=== PATIENT | male | born 1935 | race Caucasian/White ===

== ENCOUNTER 2016-06-04 09:01 | Outpatient (CLI) | payer MEDICARE, OTHER | END 2016-06-04 09:02 | disposition home or self-care (01) | DX: I48.91 Unspecified atrial fibrillation (principal); Z76.89 Persons encountering health services in other specified circumstances ==

== ENCOUNTER 2016-07-02 08:35 | Outpatient (CLI) | payer MEDICARE, OTHER | END 2016-07-02 08:36 | LOC: LAB.F 08:35 | PROVIDERS: ATTEND Family Medicine | DX: I48.91 Unspecified atrial fibrillation (principal); Z76.89 Persons encountering health services in other specified circumstances | CPT/HCPCS: 85610 ==

== ENCOUNTER 2016-08-06 08:58 | Outpatient (CLI) | payer MEDICARE, OTHER | END 2016-08-06 08:59 | disposition home or self-care (01) | DX: I48.91 Unspecified atrial fibrillation (principal); Z76.89 Persons encountering health services in other specified circumstances ==

== ENCOUNTER 2016-09-10 08:23 | Outpatient (CLI) | payer MEDICARE, OTHER | END 2016-09-10 08:24 | disposition home or self-care (01) | DX: I48.91 Unspecified atrial fibrillation (principal); Z76.89 Persons encountering health services in other specified circumstances ==

== ENCOUNTER 2016-10-02 08:00 | Outpatient (CLI) | payer MEDICARE, OTHER ==
[2016-10-02 13:07] LABS: BASOPHILS % (AUTO) 0.6 %; EOSINOPHILS # (AUTO) 0.3 10^3/uL (0.0-0.7); EOSINOPHILS % (AUTO) 6.1 %; HCT - HEMATOCRIT 35.9 % (42.0-52.0); HGB - HEMOGLOBIN 12.1 g/dL (14.0-18.0); LYMPHOCYTES # (AUTO) 1.5 10^3/uL (1.5-3.5); LYMPHOCYTES % (AUTO) 32.2 %; MEAN CORPUSCULAR HEMOGLOBIN 31.3 pg (27.0-31.0); MEAN CORPUSCULAR HGB CONC 33.8 g/dL (32.0-36.0); MEAN CORPUSCULAR VOLUME 92.4 fL (80.0-94.0); MEAN PLATELET VOLUME 10.1 fL (7.4-11.4); MONOCYTES # (AUTO) 0.5 10^3/uL (0.0-1.0); MONOCYTES % (AUTO) 10.2 %; NEUTROPHILS # (AUTO) 2.4 10^3/uL (1.5-6.6); NEUTROPHILS % (AUTO) 50.9 %; RED BLOOD COUNT 3.88 10^6/uL (4.70-6.10); RED CELL DISTRIBUTION WIDTH 15.3 % (12.0-15.0); UNCORRECTED WHITE BLOOD COUNT 4.6 x10^3/uL; WHITE BLOOD COUNT 4.6 x10^3/uL (4.8-10.8)
[2016-10-02 13:40] LABS: PSA FREE 1.29 ng/mL (0.16-2.81)
[2016-10-02 13:41] LABS: PSA TOTAL 4.26 ng/mL (0.000-2.000)
[2016-10-02 13:44] LABS: ALBUMIN/GLOBULIN RATIO 1.6 (1.0-2.2); BILIRUBIN,TOTAL 0.7 mg/dL (0.2-1.0); BUN - BLOOD UREA NITROGEN 26 mg/dL (6-20); CALCIUM 9.1 mg/dL (8.5-10.3); CARBON DIOXIDE - CO2 28 mmol/L (21-32); CHLORIDE 105 mmol/L (101-111); CHOL/HDL RATIO 4.6 (<5.0); CHOLESTEROL 153 mg/dL; CREATININE 1.1 mg/dL (0.6-1.2); GFR - MDRD 64 (>89); GLUCOSE 99 mg/dL (70-100); HDL CHOLESTEROL 33 mg/dL; POTASSIUM 4.3 mmol/L (3.5-5.0); SODIUM 139 mmol/L (135-145); TOTAL PROTEIN 6.5 g/dL (6.7-8.2); TRIGLYCERIDES 105 mg/dL; VLDL CHOLESTEROL 21 mg/dL
== END 2016-10-02 08:01 | disposition home or self-care (01) ==
LOC: LAB.WCP 08:00
PROVIDERS: ATTEND Family Medicine
DX: I48.91 Unspecified atrial fibrillation (principal); E03.9 Hypothyroidism, unspecified; D64.9 Anemia, unspecified; I10 Essential (primary) hypertension; E78.1 Pure hyperglyceridemia; R97.20 Elevated prostate specific antigen [PSA]
CPT/HCPCS: 36415; 80053; 80061; 84154; 84443; 85025

== ENCOUNTER 2016-11-14 07:45 | Outpatient (CLI) | payer MEDICARE, OTHER | END 2016-11-14 07:46 | disposition home or self-care (01) | LOC: LAB.F 07:45 | PROVIDERS: ATTEND Family Medicine | DX: I48.91 Unspecified atrial fibrillation (principal) | CPT/HCPCS: 85610 ==

== ENCOUNTER 2016-11-28 08:12 | Outpatient (CLI) | payer MEDICARE, OTHER | END 2016-11-28 08:13 | disposition home or self-care (01) | LOC: LAB.F 08:12 | PROVIDERS: ATTEND Family Medicine | DX: I48.91 Unspecified atrial fibrillation (principal) | CPT/HCPCS: 85610 ==

== ENCOUNTER 2017-01-22 11:52 | Outpatient (CLI) | payer MEDICARE, OTHER | END 2017-01-22 11:53 | disposition EMS.NT | LOC: EMS 11:52 | PROVIDERS: ATTEND Surgery | DX: R55 Syncope and collapse (principal) ==

== ENCOUNTER 2017-03-06 08:04 | Outpatient (CLI) | payer MEDICARE, OTHER | END 2017-03-06 08:05 | disposition home or self-care (01) | LOC: LAB.F 08:04 | PROVIDERS: ATTEND Family Medicine | DX: I48.91 Unspecified atrial fibrillation (principal); Z76.89 Persons encountering health services in other specified circumstances | CPT/HCPCS: 85610 ==

== ENCOUNTER 2017-04-03 08:05 | Outpatient (CLI) | payer MEDICARE, OTHER | END 2017-04-03 08:06 | disposition home or self-care (01) | LOC: LAB.F 08:05 | PROVIDERS: ATTEND Family Medicine | DX: I48.91 Unspecified atrial fibrillation (principal); Z76.89 Persons encountering health services in other specified circumstances | CPT/HCPCS: 85610 ==

== ENCOUNTER 2017-04-22 08:00 | Outpatient (CLI) | payer MEDICARE, OTHER ==
[2017-04-22 12:31] LABS: BASOPHILS % (AUTO) 0.8 %; EOSINOPHILS # (AUTO) 0.2 10^3/uL (0.0-0.7); EOSINOPHILS % (AUTO) 3.8 %; HCT - HEMATOCRIT 37.5 % (42.0-52.0); HGB - HEMOGLOBIN 12.7 g/dL (14.0-18.0); LYMPHOCYTES # (AUTO) 1.3 10^3/uL (1.5-3.5); LYMPHOCYTES % (AUTO) 28.8 %; MEAN CORPUSCULAR HEMOGLOBIN 31.7 pg (27.0-31.0); MEAN CORPUSCULAR HGB CONC 33.7 g/dL (32.0-36.0); MEAN CORPUSCULAR VOLUME 93.9 fL (80.0-94.0); MONOCYTES # (AUTO) 0.4 10^3/uL (0.0-1.0); MONOCYTES % (AUTO) 8.8 %; NEUTROPHILS # (AUTO) 2.7 10^3/uL (1.5-6.6); NEUTROPHILS % (AUTO) 57.8 %; UNCORRECTED WHITE BLOOD COUNT 4.6 x10^3/uL; WHITE BLOOD COUNT 4.6 x10^3/uL (4.8-10.8)
[2017-04-22 12:49] LABS: HEMOGLOBIN A1C 0.44 g/dL
[2017-04-22 12:52] LABS: ALBUMIN/GLOBULIN RATIO 1.6 (1.0-2.2); BILIRUBIN,TOTAL 0.9 mg/dL (0.2-1.0); BUN - BLOOD UREA NITROGEN 17 mg/dL (6-20); CALCIUM 8.8 mg/dL (8.5-10.3); CARBON DIOXIDE - CO2 28 mmol/L (21-32); CHLORIDE 103 mmol/L (101-111); CHOL/HDL RATIO 4.2 (<5.0); CHOLESTEROL 164 mg/dL; CREATININE 1.1 mg/dL (0.6-1.2); GFR - MDRD 64 (>89); GLUCOSE 96 mg/dL (70-100); HDL CHOLESTEROL 39 mg/dL; LDL/HDL RATIO 2.5 (<3.6); POTASSIUM 3.7 mmol/L (3.5-5.0); SODIUM 135 mmol/L (135-145); TOTAL PROTEIN 6.6 g/dL (6.7-8.2); TRIGLYCERIDES 131 mg/dL; VLDL CHOLESTEROL 26 mg/dL
== END 2017-04-22 08:01 | disposition home or self-care (01) ==
LOC: LAB.WCP 08:00
PROVIDERS: ATTEND Family Medicine
DX: I48.91 Unspecified atrial fibrillation (principal); E11.9 Type 2 diabetes mellitus without complications; I10 Essential (primary) hypertension; E78.1 Pure hyperglyceridemia; E03.9 Hypothyroidism, unspecified
CPT/HCPCS: 36415; 80053; 80061; 83036; 85025

== ENCOUNTER 2017-05-25 09:49 | Emergency (ER) | payer MEDICARE, OTHER ==
[2017-05-25] MEDS ORDERED: MECLIZINE 12.5 MG TABLET PO STA (12:20)
--- NOTE | 2017-05-25 12:21 | ED Physician Documentation ---
History of Present Illness - Stated complaint Stated Complaint: HIGH BP/LIGHTHEAD - Chief complaint Chief Complaint: General - History obtained from History obtained from: Patient, Family - History of Present Illness Timing: How many weeks ago (2) - Additonal information Additional information: 81-year-old male has been experiencing acute episodic dizziness for the past 2 weeks. His primary care doctor is asked him coming to the emergency department to be evaluated for dehydration. He reports that he is having episodic dizziness that is profound and associated with movement of his head. This is worse today than normal. Review of Systems Constitutional: denies: Fever, Chills, Myalgias Eyes: denies: Decreased vision Ears: denies: Ear pain Nose: denies: Rhinorrhea / runny nose, Congestion Throat: denies: Sore throat Cardiac: denies: Chest pain / pressure, Palpitations Respiratory: denies: Dyspnea, Cough GI: reports: Nausea. denies: Abdominal Pain, Constipation, Diarrhea : denies: Dysuria, Frequency Skin: denies: Rash Musculoskeletal: denies: Neck pain, Back pain, Extremity pain Neurologic: denies: Generalized weakness, Focal weakness, Numbness PD PAST MEDICAL HISTORY - Present Medications Home Medications: Ambulatory Orders Medication Instructions Recorded Confirmed Allopurinol 400 mg PO DAILY 05/25/17 05/25/17 Aspirin 81 mg PO DAILY 05/25/17 05/25/17 Carvedilol 25 mg PO BID 05/25/17 05/25/17 Cilostazol 50 mg PO BID 05/25/17 05/25/17 Flaxseed Oil 1,000 mg PO DAILY 05/25/17 05/25/17 Furosemide 20 mg PO DAILY 05/25/17 05/25/17 Lovastatin 10 mg PO DAILY 05/25/17 05/25/17 Meclizine HCl [Bonine] 25 mg PO Q6HR PRN #20 tab.chew 05/25/17 Ondansetron Odt [Zofran] 4 mg TL Q6H PRN #10 tablet 05/25/17 Terazosin [Hytrin] 5 mg PO DAILY 05/25/17 05/25/17 Warfarin [Coumadin] 5 mg PO 1400 05/25/17 05/25/17 Warfarin [Coumadin] 7.5 mg PO 1400 05/25/17 05/25/17 - Allergies Allergies/Adverse Reactions: Allergies Allergy/AdvReac Type Severity Reaction Status Date / Time niacin Allergy Unknown Verified 05/25/17 09:55 Penicillins Allergy Unknown Verified 05/25/17 09:55 PD ED PE NORMAL - Vitals Vital signs reviewed: Yes (Normal) - General General: Alert and oriented X 3, No acute distress, Well developed/nourished - HEENT HEENT: Atraumatic, PERRL, EOMI, Ears normal, Moist mucous membranes, Pharynx benign - Neck Neck: Supple, no meningeal sign, No bony TTP - Cardiac Cardiac: RRR, No murmur - Respiratory Respiratory: No respiratory distress, Clear bilaterally - Abdomen Abdomen: Soft, Non tender - Back Back: No CVA TTP, No spinal TTP - Derm Derm: Normal color, Warm and dry, No rash - Extremities Extremities: No deformity, No edema - Neuro Neuro: Alert and oriented X 3, No motor deficit, No sensory deficit, Normal speech Eye Opening: Spontaneous Motor: Obeys Commands Verbal: Oriented GCS Score: 15 - Psych Psych: Normal mood, Normal affect Results - Vitals Vitals: Vital Signs - 24 hr 05/25/17 05/25/17 05/25/17 09:52 10:47 11:12 Temperature 36 C L 36.4 C L Heart Rate 71 72 Heart Rate [ 70 Sitting] Heart Rate [ 68 Standing] Heart Rate [ 69 Supine] Respiratory 22 16 Rate Blood Pressure 128/71 113/68 Blood Pressure 121/72 [Sitting] Blood Pressure 122/69 [Standing] Blood Pressure 121/67 [Supine] O2 Saturation 100 97 05/25/17 14:16 Temperature Heart Rate 67 Heart Rate [ Sitting] Heart Rate [ Standing] Heart Rate [ Supine] Respiratory 12 Rate Blood Pressure 158/84 H Blood Pressure [Sitting] Blood Pressure [Standing] Blood Pressure [Supine] O2 Saturation 97 Oxygen O2 Source Room air - EKG (time done) 1024 Rate: Rate (enter#) (67) Rhythm: NSR Intervals: RBBB Compare to prior EKG: Old EKG unavailable Computer interpretation: Agree with computer - Labs Labs: Laboratory Tests 05/25/17 05/25/17 05/25/17 13:09 13:09 13:09 WBC 3.8 L RBC 3.73 L Hgb 11.9 L Hct 35.1 L MCV 94.0 MCH 32.0 H MCHC 34.0 RDW 15.9 H Plt Count 126 L MPV 9.4 Neut # 2.2 Lymph # 1.0 L [place] # 0.4 Eos # 0.1 Baso # 0.0 Absolute Nucleated RBC 0.00 Nucleated RBC % 0.0 PT INR Sodium 138 Potassium 3.8 Chloride 103 Carbon Dioxide 27 Anion Gap 8.0 BUN 25 H Creatinine 0.9 Estimated GFR (MDRD) 81 L Glucose 96 Calcium 8.8 Total Bilirubin 0.7 AST 15 ALT 13 Alkaline Phosphatase 48 Troponin I < 0.04 Total Protein 6.6 L Albumin 4.1 Globulin 2.5 Albumin/Globulin Ratio 1.6 Lipase 22 05/25/17 13:09 WBC RBC Hgb Hct MCV MCH MCHC RDW Plt Count MPV Neut # Lymph # [place] # Eos # Baso # Absolute Nucleated RBC Nucleated RBC % PT 25.5 H INR 2.3 H Sodium Potassium Chloride Carbon Dioxide Anion Gap BUN Creatinine Estimated GFR (MDRD) Glucose Calcium Total Bilirubin AST ALT Alkaline Phosphatase Troponin I Total Protein Albumin Globulin Albumin/Globulin Ratio Lipase Procedures - IVC sono (time) 1220 Bedside IVC sono: IVC measures (cm) (1.71), IVC collapsed c insp (cm) (0.95), Euvolemia PD MEDICAL DECISION MAKING - ED course Complexity details: reviewed old records, reviewed results, re-evaluated patient , considered differential, d/w patient, d/w family ED course: 81-year-old male with acute vertigo has improved with use of meclizine and he does not appear to be dehydrated on interrogation of the inferior vena cava.There are 2 other patients in the department today and now with acute labyrinthitis. He is given a prescription for some meclizine and instructions on modified Ronald maneuvers. Departure - Departure Disposition: 01 Home, Self Care Clinical Impression: Labyrinthitis, acute Qualifiers: Laterality: bilateral Qualified Code(s): H83.03 - Labyrinthitis, bilateral Condition: Stable Instructions: ED Labyrinthitis Follow-Up: Larry Dumont MD [Primary Care Provider] - Prescriptions: Meclizine HCl [Bonine] 25 mg PO Q6HR PRN #20 tab.chew PRN Reason: Dizziness Ondansetron Odt [Zofran] 4 mg TL Q6H PRN #10 tablet PRN Reason: Nausea / Vomiting
[2017-05-25 13:19] LABS: BASOPHILS % (AUTO) 0.8 %; EOSINOPHILS # (AUTO) 0.1 10^3/uL (0.0-0.7); EOSINOPHILS % (AUTO) 3.5 %; HGB - HEMOGLOBIN 11.9 g/dL (14.0-18.0); LYMPHOCYTES % (AUTO) 25.8 %; MEAN PLATELET VOLUME 9.4 fL (7.4-11.4); MONOCYTES # (AUTO) 0.4 10^3/uL (0.0-1.0); MONOCYTES % (AUTO) 10.7 %; NEUTROPHILS # (AUTO) 2.2 10^3/uL (1.5-6.6); NEUTROPHILS % (AUTO) 59.2 %; PLT - PLATELET COUNT 126 10^3/uL (130-450); RED BLOOD COUNT 3.73 10^6/uL (4.70-6.10); RED CELL DISTRIBUTION WIDTH 15.9 % (12.0-15.0); WHITE BLOOD COUNT 3.8 x10^3/uL (4.8-10.8)
[2017-05-25 13:30] LABS: ALBUMIN 4.1 g/dL (3.2-5.5); ALBUMIN/GLOBULIN RATIO 1.6 (1.0-2.2); BILIRUBIN,TOTAL 0.7 mg/dL (0.2-1.0); CALCIUM 8.8 mg/dL (8.5-10.3); CREATININE 0.9 mg/dL (0.6-1.2); TOTAL PROTEIN 6.6 g/dL (6.7-8.2)
[2017-05-25 14:17] VITALS: BP 158/84
[2017-05-25 14:28] LABS: INR 2.3 (0.8-1.2); PT - PROTHROMBIN TIME 25.5 secs (9.9-12.6)
== END 2017-05-25 15:04 | disposition home or self-care (01) ==
LOC: ED 09:49
DX: H83.03 Labyrinthitis, bilateral (principal); I45.10 Unspecified right bundle-branch block; I49.3 Ventricular premature depolarization; Z79.82 Long term (current) use of aspirin
CPT/HCPCS: 36415; 80053; 83690; 84484; 85025; 85610; 93005; 99283; 99284; A9270

== ENCOUNTER 2017-06-24 08:21 | Outpatient (CLI) | payer MEDICARE, OTHER | END 2017-06-24 08:22 | disposition home or self-care (01) | LOC: LAB.F 08:21 | PROVIDERS: ATTEND Family Medicine | DX: I48.91 Unspecified atrial fibrillation (principal); Z76.89 Persons encountering health services in other specified circumstances | CPT/HCPCS: 85610 ==

== ENCOUNTER 2017-07-22 08:13 | Outpatient (CLI) | payer MEDICARE, OTHER | END 2017-07-22 08:14 | disposition home or self-care (01) | LOC: LAB.F 08:13 | PROVIDERS: ATTEND Family Medicine | DX: I48.91 Unspecified atrial fibrillation (principal); Z76.89 Persons encountering health services in other specified circumstances | CPT/HCPCS: 85610 ==

== ENCOUNTER 2017-08-19 07:43 | Outpatient (CLI) | payer MEDICARE, OTHER | END 2017-08-19 07:44 | disposition home or self-care (01) | LOC: LAB.F 07:43 | PROVIDERS: ATTEND Family Medicine | DX: I48.91 Unspecified atrial fibrillation (principal); Z76.89 Persons encountering health services in other specified circumstances | CPT/HCPCS: 85610 ==

== ENCOUNTER 2017-09-02 08:11 | Outpatient (CLI) | payer MEDICARE, OTHER | END 2017-09-02 08:12 | disposition home or self-care (01) | LOC: LAB.F 08:11 | PROVIDERS: ATTEND Family Medicine | DX: I48.91 Unspecified atrial fibrillation (principal); Z76.89 Persons encountering health services in other specified circumstances | CPT/HCPCS: 85610 ==

== ENCOUNTER 2017-09-16 16:10 | Outpatient (CLI) | payer MEDICARE, OTHER ==
[2017-09-16 16:49] LABS: BASOPHILS % (AUTO) 0.7 %; EOSINOPHILS # (AUTO) 0.1 10^3/uL (0.0-0.7); EOSINOPHILS % (AUTO) 3.9 %; HGB - HEMOGLOBIN 11.4 g/dL (14.0-18.0); LYMPHOCYTES % (AUTO) 28.4 %; MEAN CORPUSCULAR HEMOGLOBIN 29.8 pg (27.0-31.0); MEAN CORPUSCULAR HGB CONC 31.9 g/dL (32.0-36.0); MEAN CORPUSCULAR VOLUME 93.3 fL (80.0-94.0); MEAN PLATELET VOLUME 8.9 fL (7.4-11.4); MONOCYTES # (AUTO) 0.4 10^3/uL (0.0-1.0); PLT - PLATELET COUNT 139 10^3/uL (130-450); RED BLOOD COUNT 3.83 10^6/uL (4.70-6.10); RED CELL DISTRIBUTION WIDTH 16.1 % (12.0-15.0); WHITE BLOOD COUNT 3.6 x10^3/uL (4.8-10.8)
[2017-09-16 17:03] LABS: ALBUMIN 4.2 g/dL (3.2-5.5); ALBUMIN/GLOBULIN RATIO 1.8 (1.0-2.2); BILIRUBIN,TOTAL 0.7 mg/dL (0.2-1.0); CALCIUM 8.8 mg/dL (8.5-10.3); CREATININE 0.9 mg/dL (0.6-1.2); TOTAL PROTEIN 6.6 g/dL (6.7-8.2)
== END 2017-09-16 16:11 | disposition home or self-care (01) ==
LOC: LAB 16:10
PROVIDERS: ATTEND Physician Assistant
DX: I48.91 Unspecified atrial fibrillation (principal); R42 Dizziness and giddiness; I10 Essential (primary) hypertension
CPT/HCPCS: 36415; 80053; 84484; 85025

== ENCOUNTER 2017-09-24 07:42 | Emergency (ER) | payer MEDICARE, OTHER ==
[2017-09-24 08:16] VITALS: BP 126/82
--- NOTE | 2017-09-24 08:44 | XRAY Preliminary Report ---
Exam: XR WRIST 4 VIEW LT IMPRESSION: No acute osseous abnormality. [facility] SITE ID: [id number]
--- NOTE | 2017-09-24 08:45 | XRAY Report ---
EXAM: LEFT WRIST RADIOGRAPHY EXAM DATE: 09/24/2017 08:29 AM. CLINICAL HISTORY: Pain after ground-level fall gardening yesterday. COMPARISON: None. TECHNIQUE: 4 views. FINDINGS: Bones: No acute fracture. Joints: No dislocation. Severe degenerative change at the first CMC joint and moderate degenerative c hange elsewhere. Soft Tissues: Diffuse soft tissue swelling. IMPRESSION: No acute osseous abnormality. [facility] Referring Provider Line: [phone] SITE ID: [id number]
[2017-09-24] MEDS ORDERED: HYDROcod/ACETAM 5/325 MG TABLET PO STA (08:49)
--- NOTE | 2017-09-24 09:08 | ED Physician Documentation ---
PD HPI UPPER EXT INJURY - Stated complaint Stated Complaint: WRIST PX - Chief complaint Chief Complaint: Ext Problem - History obtained from History obtained from: Patient - History of Present Illness Location: Left, Wrist Type of injury: Fall Where injury occurred: Home Timing - onset: How many weeks ago (1) Timing - duration: Weeks (1) Timing - details: Gradual onset, Still present Improved by: Rest, Immobilization Worsened by: Moving, Palpating Associated symptoms: Swelling Contributing factors: Anticoagulated Similar symptoms before: Has not had sx before Recently seen: Not recently seen - Additonal information Additional information: 82 year old male was out in his garden 1 week ago when he fell onto his outstretched left hand and he had some pain in his wrist at the time but he was able to continue his work. Over the week his pain has gotten worse. The swelling has become worse. He is on Coumadin. Review of Systems Constitutional: denies: Fever Respiratory: denies: Cough GI: denies: Vomiting Musculoskeletal: reports: Joint pain, Joint swelling Neurologic: denies: Generalized weakness, Focal weakness, Numbness PD PAST MEDICAL HISTORY - Past Medical History Past Medical History: Yes Cardiovascular: Hypertension, Atrial fibrillation - Past Surgical History Past Surgical History: No - Present Medications Home Medications: Ambulatory Orders Medication Instructions Recorded Confirmed Allopurinol 400 mg PO DAILY 05/25/17 05/25/17 Aspirin 81 mg PO DAILY 05/25/17 05/25/17 Carvedilol 25 mg PO BID 05/25/17 05/25/17 Cilostazol 50 mg PO BID 05/25/17 05/25/17 Flaxseed Oil 1,000 mg PO DAILY 05/25/17 05/25/17 Furosemide 20 mg PO DAILY 05/25/17 05/25/17 Lovastatin 10 mg PO DAILY 05/25/17 05/25/17 Meclizine HCl [Bonine] 25 mg PO Q6HR PRN #20 tab.chew 05/25/17 Ondansetron Odt [Zofran] 4 mg TL Q6H PRN #10 tablet 05/25/17 Terazosin [Hytrin] 5 mg PO DAILY 05/25/17 05/25/17 Warfarin [Coumadin] 5 mg PO 1400 05/25/17 05/25/17 Warfarin [Coumadin] 7.5 mg PO 1400 05/25/17 05/25/17 HYDROcod/ACETAM 5/325 [[place] 5/325] 1 - 2 ea PO Q6H PRN #15 tablet 09/24/17 - Allergies Allergies/Adverse Reactions: Allergies Allergy/AdvReac Type Severity Reaction Status Date / Time niacin Allergy Unknown Verified 09/24/17 08:17 Penicillins Allergy Unknown Verified 09/24/17 08:17 - Social History Does the pt smoke?: No Smoking Status: Never smoker Does the pt drink ETOH?: No Does the pt have substance abuse?: No - Immunizations Immunizations are current?: Yes PD ED PE NORMAL - Vitals Vital signs reviewed: Yes (normal ) - General General: Alert and oriented X 3, No acute distress, Well developed/nourished - HEENT HEENT: Atraumatic, PERRL, EOMI - Neck Neck: Supple, no meningeal sign - Respiratory Respiratory: No respiratory distress - Derm Derm: Normal color, Warm and dry - Extremities Extremities: Other (There is swelling and point tenderness to the dorsum of the left wrist. He is able to move it through a range of motion with pain and this is ) - Neuro Neuro: No motor deficit, No sensory deficit Eye Opening: Spontaneous Motor: Obeys Commands Verbal: Oriented GCS Score: 15 - Psych Psych: Normal mood, Normal affect Results - Vitals Vitals: Vital Signs - 24 hr 09/24/17 08:00 Temperature 36.6 C Heart Rate 78 Respiratory 18 Rate Blood Pressure 126/82 H O2 Saturation 98 Oxygen O2 Source Room air - Labs Labs: Laboratory Tests 09/24/17 08:43 Whole Blood INR 2.7 H - Rads (name of study) left wrist Radiology: Prelim report reviewed (Impression: No acute osseous abnormality.), EMP read indepedently, See rad report Procedures - Splint (location) left wrist Splint applied by: Nurse Type of splint: Fiberglass, Volar cock up Other: Patient tolerated well, No complications, Neurovascular intact, Good alignment PD MEDICAL DECISION MAKING - ED course Complexity details: reviewed old records, reviewed results, re-evaluated patient , considered differential, d/w patient, d/w family ED course: 82-year-old male with an acute left wrist sprain who is on Coumadin appears to have had some bleeding into the joint space causing some swelling and increased pain. 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 His INR is in therapeutic range. Departure - Departure Disposition: 01 Home, Self Care Clinical Impression: Left wrist sprain Qualifiers: Encounter type: initial encounter Qualified Code(s): S63.502A - Unspecified sprain of left wrist, initial encounter Condition: Stable Instructions: ED Sprain Wrist Follow-Up: Larry Dumont MD [Primary Care Provider] - Prescriptions: HYDROcod/ACETAM 5/325 [[place] 5/325] 1 - 2 ea PO Q6H PRN #15 tablet PRN Reason: Pain
== END 2017-09-24 09:50 | disposition home or self-care (01) ==
LOC: ED 07:42
DX: I10 Essential (primary) hypertension (principal); Z79.01 Long term (current) use of anticoagulants; S63.502A Unspecified sprain of left wrist, initial encounter; W01.0XXA Fall on same level from slipping, tripping and stumbling without subsequent striking against object, initial encounter; Y93.H2 Activity, gardening and landscaping; Y92.096 Garden or yard of other non-institutional residence as the place of occurrence of the external cause
CPT/HCPCS: 29125; 73110; 85610; 99283; 99284; A9270

== ENCOUNTER 2017-10-29 07:35 | Outpatient (CLI) | payer MEDICARE, OTHER ==
--- NOTE | 2017-10-29 16:46 | MRI Report ---
Procedure Date: 10/29/2017 Accession Number: [id number] / [id number] Procedure: MRI - Shoulder RT W/O CPT Code: FULL RESULT: EXAM: RIGHT SHOULDER MRI WITHOUT CONTRAST EXAM DATE: 10/29/2017 08:29 AM. CLINICAL HISTORY: Rotator cuff tear, right. COMPARISON: Radiographs 10/17/2017. TECHNIQUE: Multiplanar, multisequence T1-weighted and fluid-sensitive sequences of the shoulder without contrast. Other: None. FINDINGS: Acromioclavicular Region: The acromion is type II. Moderate degenerative change of the joint with small effusion. The coracoacromial and coracoclavicular ligaments are intact. Moderate subacromial/subdeltoid bursal fluid. Glenohumeral Region: No subluxation. Small to moderate joint effusion with synovitis. Scattered foci of deep partial-thickness loss at the articular surfaces. The glenohumeral ligaments and joint capsule are unremarkable. Bone Marrow: No fracture or bone lesion. Reactive edema at the greater tuberosity. Labrum: Degenerative fraying throughout. Likely full-thickness tear at the posterior superior aspect where there is a 0.6 cm paralabral cyst. Likely partial-thickness tears posterior inferior and anterior inferior aspects. Musculature/Rotator Cuff: Full-thickness full-width tear supraspinatus tendon. Free end of the torn tendon fibers medial to the acromion, 3 cm from the insertion. Full-thickness near full-width tear infraspinatus tendon. Free end of the torn tendon fibers at the level of the acromion, 3 cm from the insertion. Posterior third of the fibers are thickened with ill-defined fluid sensitive hyperintense signal although intact. Teres minor tendon is intact. Mild subscapularis tendinopathy with deep partial-thickness undersurface tear at the mid to superior fibers. Mild fatty atrophy and volume loss in the supraspinatus, infraspinatus, and subscapularis muscles. Minimal edema in the supraspinatus and infraspinatus muscles. Biceps Tendon: Severe thickening of the intra-articular portion. Medial dislocation from the superior aspect of the groove. Large amount of excess fluid in the tendon sheath. Other: The subcutaneous tissues are unremarkable. IMPRESSION: 1. Full-thickness full-width tear supraspinatus tendon. 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 2. Full-thickness nearly full-width tear infraspinatus tendon. 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 3. Mild subscapularis tendinopathy with deep partial-thickness undersurface tear at the mid to superior fibers. 4. Severe biceps tendinopathy with medial dislocation from the groove. 5. Degenerative fraying and tearing of the labrum. 6. Mild glenohumeral degenerative change with small to moderate joint effusion and synovitis. 7. Moderate acromioclavicular degenerative change. 8. Moderate subacromial/subdeltoid bursitis. [facility] MUSCULOSKELETAL RADIOLOGY SECTION
== END 2017-10-29 07:36 | disposition home or self-care (01) ==
LOC: DI 07:35
PROVIDERS: ATTEND Orthopaedic Surgery
DX: M75.101 Unspecified rotator cuff tear or rupture of right shoulder, not specified as traumatic (principal); M67.88 Other specified disorders of synovium and tendon, other site; M19.011 Primary osteoarthritis, right shoulder; M75.51 Bursitis of right shoulder; M65.811 Other synovitis and tenosynovitis, right shoulder; M25.411 Effusion, right shoulder

== ENCOUNTER 2017-11-05 09:46 | Outpatient (CLI) | payer MEDICARE, OTHER | END 2017-11-05 09:47 | disposition home or self-care (01) | LOC: LAB.F 09:46 | PROVIDERS: ATTEND Family Medicine | DX: I48.91 Unspecified atrial fibrillation (principal); Z76.89 Persons encountering health services in other specified circumstances | CPT/HCPCS: 85610 ==

== ENCOUNTER 2017-12-10 09:49 | Outpatient (CLI) | payer MEDICARE, OTHER ==
[2017-12-10 18:05] LABS: PSA FREE 1.07 ng/mL (0.16-2.81)
[2017-12-10 18:06] LABS: PSA TOTAL 5.38 ng/mL (0.000-2.000)
== END 2017-12-10 09:50 | disposition home or self-care (01) ==
LOC: LAB.F 09:49
PROVIDERS: ATTEND Family Medicine
DX: R97.20 Elevated prostate specific antigen [PSA] (principal); I48.91 Unspecified atrial fibrillation; Z76.89 Persons encountering health services in other specified circumstances
CPT/HCPCS: 36415; 84154; 85610

== ENCOUNTER 2017-12-12 07:34 | Outpatient (CLI) | payer MEDICARE, OTHER | END 2017-12-12 07:35 | disposition home or self-care (01) | LOC: LAB.F 07:34 | PROVIDERS: ATTEND Family Medicine | DX: I48.91 Unspecified atrial fibrillation (principal); Z76.89 Persons encountering health services in other specified circumstances | CPT/HCPCS: 85610 ==

== ENCOUNTER 2018-01-09 08:18 | Outpatient (CLI) | payer MEDICARE, OTHER | END 2018-01-09 08:19 | disposition home or self-care (01) | LOC: LAB 08:18 | PROVIDERS: ATTEND Family Medicine | DX: I48.91 Unspecified atrial fibrillation (principal); Z76.89 Persons encountering health services in other specified circumstances | CPT/HCPCS: 85610 ==

== ENCOUNTER 2018-02-06 09:57 | Outpatient (CLI) | payer MEDICARE, OTHER | END 2018-02-06 09:58 | disposition home or self-care (01) | LOC: LAB 09:57 | PROVIDERS: ATTEND Family Medicine | DX: Z79.01 Long term (current) use of anticoagulants (principal) | CPT/HCPCS: 85610 ==

== ENCOUNTER 2018-02-20 09:49 | Outpatient (CLI) | payer MEDICARE, OTHER | END 2018-02-20 09:50 | disposition home or self-care (01) | LOC: LAB 09:49 | PROVIDERS: ATTEND Family Medicine | DX: Z79.01 Long term (current) use of anticoagulants (principal) | CPT/HCPCS: 85610 ==

== ENCOUNTER 2018-03-20 09:29 | Outpatient (CLI) | payer MEDICARE, OTHER | END 2018-03-20 09:30 | disposition home or self-care (01) | LOC: LAB 09:29 | PROVIDERS: ATTEND Family Medicine | DX: Z79.01 Long term (current) use of anticoagulants (principal) | CPT/HCPCS: 85610 ==

== ENCOUNTER 2018-04-03 09:54 | Outpatient (CLI) | payer MEDICARE, OTHER | END 2018-04-03 09:55 | disposition home or self-care (01) | LOC: LAB 09:54 | PROVIDERS: ATTEND Family Medicine | DX: Z79.01 Long term (current) use of anticoagulants (principal) | CPT/HCPCS: 36415; 85610 ==

== ENCOUNTER 2018-04-04 06:36 | Outpatient (CLI) | payer MEDICARE, OTHER | END 2018-04-04 06:37 | disposition home or self-care (01) | LOC: LAB 06:36 | PROVIDERS: ATTEND Family Medicine | DX: Z53.9 Procedure and treatment not carried out, unspecified reason (principal) ==

== ENCOUNTER 2018-04-07 08:23 | Outpatient (CLI) | payer MEDICARE, OTHER | END 2018-04-07 08:24 | disposition home or self-care (01) | LOC: LAB 08:23 | PROVIDERS: ATTEND Family Medicine | DX: Z79.01 Long term (current) use of anticoagulants (principal) | CPT/HCPCS: 85610 ==

== ENCOUNTER 2018-04-21 09:39 | Outpatient (CLI) | payer MEDICARE, OTHER | END 2018-04-21 09:40 | disposition home or self-care (01) | LOC: LAB 09:39 | PROVIDERS: ATTEND Family Medicine | DX: Z79.01 Long term (current) use of anticoagulants (principal) | CPT/HCPCS: 85610 ==

== ENCOUNTER 2018-04-29 07:35 | Outpatient (CLI) | payer MEDICARE, OTHER ==
[2018-04-29 08:12] LABS: BASOPHILS % (AUTO) 0.7 %; EOSINOPHILS # (AUTO) 0.1 10^3/uL (0.0-0.7); EOSINOPHILS % (AUTO) 3.8 %; LYMPHOCYTES # (AUTO) 1.1 10^3/uL (1.5-3.5); LYMPHOCYTES % (AUTO) 32.6 %; MEAN CORPUSCULAR HEMOGLOBIN 31.3 pg (27.0-31.0); MEAN CORPUSCULAR VOLUME 92.1 fL (80.0-94.0); MEAN PLATELET VOLUME 9.2 fL (7.4-11.4); MONOCYTES # (AUTO) 0.3 10^3/uL (0.0-1.0); MONOCYTES % (AUTO) 9.6 %; NEUTROPHILS # (AUTO) 1.7 10^3/uL (1.5-6.6); NEUTROPHILS % (AUTO) 53.3 %; PLT - PLATELET COUNT 142 10^3/uL (130-450); RED BLOOD COUNT 3.84 10^6/uL (4.70-6.10); RED CELL DISTRIBUTION WIDTH 16.7 % (12.0-15.0); WHITE BLOOD COUNT 3.3 x10^3/uL (4.8-10.8)
[2018-04-29 09:07] LABS: PSA FREE 1.27 ng/mL (0.16-2.81)
[2018-04-29 09:08] LABS: PSA TOTAL 5.15 ng/mL (0.000-2.000)
[2018-04-29 09:15] LABS: ALBUMIN 4.2 g/dL (3.2-5.5); ALBUMIN/GLOBULIN RATIO 1.6 (1.0-2.2); ALKALINE PHOSPHATASE 110 IU/L (42-121); ALT ALANINE AMINOTRANSFERASE 28 IU/L (10-60); AST ASPARTATE AMINOTRANSFERASE 23 IU/L (10-42); BILIRUBIN,TOTAL 1.1 mg/dL (0.2-1.0); BUN - BLOOD UREA NITROGEN 25 mg/dL (6-20); CALCIUM 9.2 mg/dL (8.5-10.3); CARBON DIOXIDE - CO2 29 mmol/L (21-32); CHLORIDE 103 mmol/L (101-111); CHOL/HDL RATIO 4.1 (<5.0); CHOLESTEROL 147 mg/dL; CREATININE 1.1 mg/dL (0.6-1.2); GFR - MDRD 64 (>89); GLUCOSE 114 mg/dL (70-100); HDL CHOLESTEROL 36 mg/dL; LDL CHOLESTEROL,CALCULATED 94 mg/dL; LDL/HDL RATIO 2.6 (<3.6); SODIUM 138 mmol/L (135-145); TOTAL PROTEIN 6.8 g/dL (6.7-8.2); VLDL CHOLESTEROL 17 mg/dL
== END 2018-04-29 07:36 | disposition home or self-care (01) ==
LOC: LAB 07:35
PROVIDERS: ATTEND Family Medicine
DX: I10 Essential (primary) hypertension (principal); R97.20 Elevated prostate specific antigen [PSA]; Z79.899 Other long term (current) drug therapy; I48.91 Unspecified atrial fibrillation; E03.9 Hypothyroidism, unspecified; D64.9 Anemia, unspecified
CPT/HCPCS: 36415; 80053; 80061; 83721; 84153; 84154; 84443; 85025

== ENCOUNTER 2018-05-21 08:41 | Outpatient (CLI) | payer MEDICARE, OTHER | END 2018-05-21 08:42 | disposition home or self-care (01) | LOC: LAB 08:41 | PROVIDERS: ATTEND Family Medicine | DX: Z79.01 Long term (current) use of anticoagulants (principal) | CPT/HCPCS: 85610 ==

== ENCOUNTER 2018-05-28 08:50 | Outpatient (CLI) | payer MEDICARE, OTHER | END 2018-05-28 08:51 | disposition home or self-care (01) | LOC: LAB 08:50 | PROVIDERS: ATTEND Family Medicine | DX: Z79.01 Long term (current) use of anticoagulants (principal) | CPT/HCPCS: 85610 ==

== ENCOUNTER 2018-06-25 08:31 | Outpatient (CLI) | payer MEDICARE, OTHER | END 2018-06-25 08:32 | disposition home or self-care (01) | LOC: LAB 08:31 | PROVIDERS: ATTEND Family Medicine | DX: Z79.01 Long term (current) use of anticoagulants (principal) | CPT/HCPCS: 85610 ==

== ENCOUNTER 2018-07-23 08:18 | Outpatient (CLI) | payer MEDICARE, OTHER | END 2018-07-23 08:19 | disposition home or self-care (01) | LOC: LAB 08:18 | PROVIDERS: ATTEND Family Medicine | DX: Z79.01 Long term (current) use of anticoagulants (principal) | CPT/HCPCS: 85610 ==

== ENCOUNTER 2018-08-04 08:00 | Outpatient (CLI) | payer MEDICARE, OTHER | END 2018-08-04 23:59 | disposition home or self-care (01) | LOC: EDSEX → LAB.WCP 08:00 | PROVIDERS: ATTEND Family Medicine | DX: R10.9 Unspecified abdominal pain (principal) | CPT/HCPCS: 81002 ==

== ENCOUNTER 2018-08-05 07:27 | Outpatient (CLI) | payer MEDICARE, OTHER ==
[2018-08-05 07:56] LABS: BASOPHILS % (AUTO) 0.5 %; EOSINOPHILS # (AUTO) 0.2 10^3/uL (0.0-0.7); LYMPHOCYTES # (AUTO) 0.9 10^3/uL (1.5-3.5); LYMPHOCYTES % (AUTO) 24.8 %; MEAN CORPUSCULAR HEMOGLOBIN 31.2 pg (27.0-31.0); MEAN CORPUSCULAR HGB CONC 33.4 g/dL (32.0-36.0); MEAN CORPUSCULAR VOLUME 93.2 fL (80.0-94.0); MEAN PLATELET VOLUME 8.8 fL (7.4-11.4); MONOCYTES # (AUTO) 0.5 10^3/uL (0.0-1.0); MONOCYTES % (AUTO) 15.2 %; NEUTROPHILS # (AUTO) 1.9 10^3/uL (1.5-6.6); NEUTROPHILS % (AUTO) 54.5 %; PLT - PLATELET COUNT 153 10^3/uL (130-450); RED BLOOD COUNT 3.54 10^6/uL (4.70-6.10); RED CELL DISTRIBUTION WIDTH 15.3 % (12.0-15.0); WHITE BLOOD COUNT 3.5 x10^3/uL (4.8-10.8)
[2018-08-05 08:10] LABS: ALBUMIN 3.8 g/dL (3.2-5.5); ALBUMIN/GLOBULIN RATIO 1.4 (1.0-2.2); ALKALINE PHOSPHATASE 96 IU/L (42-121); ALT ALANINE AMINOTRANSFERASE 20 IU/L (10-60); AST ASPARTATE AMINOTRANSFERASE 22 IU/L (10-42); BUN - BLOOD UREA NITROGEN 28 mg/dL (6-20); CALCIUM 8.9 mg/dL (8.5-10.3); CARBON DIOXIDE - CO2 28 mmol/L (21-32); CHLORIDE 100 mmol/L (101-111); CHOL/HDL RATIO 4.5 (<5.0); CHOLESTEROL 138 mg/dL; CREATININE 1.1 mg/dL (0.6-1.2); GFR - MDRD 64 (>89); GLUCOSE 116 mg/dL (70-100); HDL CHOLESTEROL 31 mg/dL; LDL CHOLESTEROL,CALCULATED 88 mg/dL; LDL/HDL RATIO 2.8 (<3.6); SODIUM 135 mmol/L (135-145); TOTAL PROTEIN 6.6 g/dL (6.7-8.2); VLDL CHOLESTEROL 19 mg/dL
[2018-08-05 08:45] LABS: PSA FREE 1.46 ng/mL (0.16-2.81)
[2018-08-05 08:46] LABS: PSA TOTAL 5.59 ng/mL (0.000-2.000)
== END 2018-08-05 07:28 | disposition home or self-care (01) ==
LOC: LAB 07:27
PROVIDERS: ATTEND Family Medicine
DX: I10 Essential (primary) hypertension (principal); R97.20 Elevated prostate specific antigen [PSA]; E78.1 Pure hyperglyceridemia; E03.9 Hypothyroidism, unspecified
CPT/HCPCS: 36415; 80053; 80061; 83721; 84153; 84154; 84443; 85025

== ENCOUNTER 2018-08-27 07:38 | Outpatient (CLI) | payer MEDICARE, OTHER | END 2018-08-27 07:39 | disposition home or self-care (01) | LOC: LAB 07:38 | PROVIDERS: ATTEND Family Medicine | DX: Z79.01 Long term (current) use of anticoagulants (principal) | CPT/HCPCS: 85610 ==

== ENCOUNTER 2018-09-03 07:41 | Outpatient (CLI) | payer MEDICARE, OTHER | END 2018-09-03 07:42 | disposition home or self-care (01) | LOC: LAB 07:41 | PROVIDERS: ATTEND Family Medicine | DX: Z79.01 Long term (current) use of anticoagulants (principal) | CPT/HCPCS: 85610 ==

== ENCOUNTER 2018-09-05 08:07 | Outpatient (CLI) | payer MEDICARE, OTHER ==
[2018-09-05 08:45] LABS: CHOL/HDL RATIO 6.3 (<5.0); CHOLESTEROL 163 mg/dL; HDL CHOLESTEROL 26 mg/dL; LDL CHOLESTEROL,CALCULATED 115 mg/dL; LDL/HDL RATIO 4.4 (<3.6); VLDL CHOLESTEROL 22 mg/dL
== END 2018-09-05 08:08 | disposition home or self-care (01) ==
LOC: LAB 08:07
PROVIDERS: ATTEND Family Medicine
DX: E78.1 Pure hyperglyceridemia (principal)
CPT/HCPCS: 36415; 80061; 83721

== ENCOUNTER 2018-09-08 08:01 | Outpatient (CLI) | payer MEDICARE, OTHER ==
[2018-09-08] MEDS ORDERED: IOVERSOL 320 50 ML VIAL ONE (08:17)
[2018-09-08] MEDS ORDERED: IOVERSOL 320 100 ML VIAL IVP ONE ×2 (08:17→16:08)
[2018-09-08 08:33] LABS: CALCIUM 9.2 mg/dL (8.5-10.3); CREATININE 1.1 mg/dL (0.6-1.2)
--- NOTE | 2018-09-08 12:17 | CT Report ---
Reason: FLANK PAIN,LEFT Procedure Date: 09/08/2018 Accession Number: [id number] / [id number] Procedure: CT - Abdomen/Pelvis W CPT Code: FULL RESULT: EXAM: CT ABDOMEN AND PELVIS EXAM DATE: 09/08/2018 10:16 AM. CLINICAL HISTORY: Flank pain,left. COMPARISONS: None. TECHNIQUE: Routine helical CT imaging was performed through the abdomen and pelvis. IV contrast: OPTI 320 100 mL. Enteric contrast: No. Reconstructions: Coronal and sagittal. In accordance with CT protocol optimization, one or more of the following dose reduction techniques were utilized for this exam: automated exposure control, adjustment of mA and/or KV based on patient size, or use of iterative reconstructive technique. FINDINGS: Lung Bases: At least moderate pericardial effusion and three-vessel coronary calcifications are noted. Liver: Innumerable bilateral hypodense liver lesions with peripheral enhancement are noted. The largest in the right lobe measures 2.8 x 3.3 cm on image 29 series 3 and the largest in the left lobe measures 2.7 x 2.6 cm on image 33. Gallbladder/Bile Ducts: Unremarkable. Spleen: Normal. Pancreas: In the pancreatic tail is a 6.1 x 5.2 cm hypodense lesion on image 31 series 3. This exerts apparent mass effect on the splenic vein without occlusion or definite tumor invasion. Adrenal Glands: Isoattenuating 1.3 cm nodularity of the left adrenal gland indeterminate. Kidneys: Bilateral renal cysts and hypodensities too small to characterize. Peritoneal Cavity/Bowel: There is lymphadenopathy in the region of the hepatogastric ligament and celiac axis, example image 28 series 3, 1.4 cm node. Additional small subcentimeter retroperitoneal nodes are also noted. There is no bowel obstruction. No free air or free fluid. Pelvic Organs: Fluid containing right inguinal hernia is noted. Vasculature: Atherosclerotic disease without aneurysm. Bones: No definite aggressive osseous lesions. Other: None. 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 Pericardial effusion. Indeterminate left adrenal nodule, enhancement pattern not equal to the hepatic or pancreatic lesions, possibly benign but indeterminate on this study. [facility]
== END 2018-09-08 08:02 | disposition home or self-care (01) ==
LOC: DI 08:01
PROVIDERS: ATTEND Family Medicine
DX: R10.9 Unspecified abdominal pain (principal); I10 Essential (primary) hypertension; K86.89 Other specified diseases of pancreas; K76.9 Liver disease, unspecified; I31.3 Pericardial effusion (noninflammatory)
CPT/HCPCS: 36415; 74177; 80048; Q9967

== ENCOUNTER 2018-09-15 07:38 | Outpatient (CLI) | payer MEDICARE, OTHER | END 2018-09-15 07:39 | disposition home or self-care (01) | LOC: LAB 07:38 | PROVIDERS: ATTEND Family Medicine | DX: Z79.01 Long term (current) use of anticoagulants (principal) | CPT/HCPCS: 85610 ==

== ENCOUNTER 2018-09-15 07:49 | Outpatient (CLI) | payer MEDICARE, OTHER | END 2018-09-15 07:50 | disposition home or self-care (01) | LOC: DI 07:49 | PROVIDERS: ATTEND Family Medicine | DX: I48.91 Unspecified atrial fibrillation (principal); I35.0 Nonrheumatic aortic (valve) stenosis; I27.20 Pulmonary hypertension, unspecified; I31.3 Pericardial effusion (noninflammatory); I51.7 Cardiomegaly; I77.810 Thoracic aortic ectasia; Z79.01 Long term (current) use of anticoagulants | CPT/HCPCS: 85610; 93306 ==

== ENCOUNTER 2018-09-22 07:36 | Outpatient (CLI) | payer MEDICARE, OTHER | END 2018-09-22 07:37 | disposition home or self-care (01) | LOC: LAB 07:36 | PROVIDERS: ATTEND Family Medicine | DX: Z51.81 Encounter for therapeutic drug level monitoring (principal); Z79.01 Long term (current) use of anticoagulants | CPT/HCPCS: 85610 ==

== ENCOUNTER 2018-09-25 09:04 | Emergency (ER) | payer MEDICARE, OTHER ==
--- NOTE | 2018-09-25 09:23 | ED Physician Documentation ---
History of Present Illness - Stated complaint Stated Complaint: LIGHT HEADED,DIZZY,HEADACHE - Chief complaint Chief Complaint: Neuro - History obtained from History obtained from: Patient, Family - History of Present Illness Timing: Today - Additonal information Additional information: 83-year-old male on Coumadin for atrial fibrillation was in his usual state of health this morning when he was up and around he developed a headache and some numbness to his left arm while he was brushing his teeth. He states this numbness lasted about 30 minutes and he has persistence of the headache on the right side but the numbness has resolved. He did not notice any weakness or inability to walk. Denies any difficulty with speech. 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 He is scheduled to get a biopsy of this done in 5 days time and he took his last dose of C oumadin last night. His sister of hepatic tumor last year. Review of Systems Constitutional: denies: Fever, Chills Eyes: denies: Decreased vision Ears: denies: Ear pain Nose: denies: Rhinorrhea / runny nose, Congestion Throat: denies: Sore throat Cardiac: denies: Chest pain / pressure, Palpitations Respiratory: denies: Dyspnea, Cough GI: reports: Nausea. denies: Abdominal Pain, Vomiting, Constipation, Diarrhea : denies: Dysuria, Frequency Skin: denies: Rash Musculoskeletal: denies: Neck pain, Back pain, Extremity pain Neurologic: reports: Numbness, Headache. denies: Generalized weakness, Focal weakness, Syncope, Seizure, Confused, Head injury, LOC PD PAST MEDICAL HISTORY - Past Medical History Cardiovascular: Hypertension, Atrial fibrillation - Past Surgical History Past Surgical History: No - Present Medications Home Medications: Ambulatory Orders Medication Instructions Recorded Confirmed Allopurinol 400 mg PO DAILY 05/25/17 09/25/18 Aspirin 81 mg PO DAILY 05/25/17 09/25/18 Carvedilol 25 mg PO BID 05/25/17 09/25/18 Terazosin [Hytrin] 5 mg PO DAILY 05/25/17 09/25/18 Warfarin [Coumadin] 5 mg PO 1400 05/25/17 09/25/18 Warfarin [Coumadin] 7.5 mg PO 1400 05/25/17 09/25/18 HYDROcod/ACETAM 5/325 [[place] 5/325] 1 - 2 ea PO Q6H PRN #15 tablet 09/24/17 09/25/18 Cilostazol 1 tab PO BID 09/25/18 09/25/18 Losartan Potassium 1 tab PO DAILY 09/25/18 09/25/18 Ondansetron Odt [Zofran] 4 mg TL Q6H PRN #10 tablet 09/25/18 - Allergies Allergies/Adverse Reactions: Allergies Allergy/AdvReac Type Severity Reaction Status Date / Time niacin Allergy Unknown Verified 09/25/18 09:17 Penicillins Allergy Unknown Verified 09/25/18 09:17 - Social History Does the pt smoke?: No Smoking Status: Never smoker Does the pt drink ETOH?: No Does the pt have substance abuse?: No - Immunizations Immunizations are current?: Yes PD ED PE NORMAL - Vitals Vital signs reviewed: Yes (tachy and hypertensive ) - General General: Alert and oriented X 3, No acute distress, Well developed/nourished, Other (pale appearing ) - HEENT HEENT: Atraumatic, PERRL, EOMI - Neck Neck: Supple, no meningeal sign, No bony TTP - Cardiac Cardiac: No murmur, Other (tachy and regular to 110) - Respiratory Respiratory: No respiratory distress, Clear bilaterally - Abdomen Abdomen: Soft, Non tender - Back Back: No CVA TTP, No spinal TTP - Derm Derm: Normal color, Warm and dry, Other (There is port wine staining to the ext) - Extremities Extremities: No deformity, No edema - Neuro Neuro: Alert and oriented X 3, bulldozer/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 No: Dyscongugate gaze Results - Vitals Vitals: Vital Signs - 24 hr 09/25/18 09/25/18 09/25/18 09:12 10:05 10:57 Temperature 36.9 C Heart Rate 103 H 81 73 Respiratory 18 14 21 Rate Blood Pressure 131/74 H 125/81 H 122/78 O2 Saturation 99 98 93 09/25/18 11:37 Temperature Heart Rate 91 Respiratory 14 Rate Blood Pressure 136/78 H O2 Saturation 93 Oxygen O2 Source Room air - EKG (time done) 0910 Rate: Rate (enter#) (72) Rhythm: LAE Intervals: RBBB Ischemia: Normal ST segments Compare to prior EKG: Changed from prior EKG (SPT 05-25-17 the voltage has decreased) Computer interpretation: Agree with computer - Labs Labs: Laboratory Tests 09/25/18 09/25/18 09/25/18 09:24 09:24 09:39 WBC 3.6 L RBC 3.09 L Hgb 9.1 L Hct 27.5 L MCV 89.0 MCH 29.4 MCHC 33.0 RDW 15.5 H Plt Count 222 MPV 9.2 Neut # (Auto) 1.9 Lymph # (Auto) 0.5 L [place] # (Auto) 0.7 Eos # (Auto) 0.4 Baso # (Auto) 0.0 Absolute Nucleated RBC 0.00 Nucleated RBC % 0.0 PT 25.6 H INR 2.3 H Sodium 136 Potassium 4.3 Chloride 98 L Carbon Dioxide 27 Anion Gap 11.0 BUN 21 H Creatinine 1.0 Estimated GFR (MDRD) 71 L Glucose 130 H Calcium 9.0 Total Bilirubin 1.4 H AST 27 ALT 20 Alkaline Phosphatase 160 H Troponin I Total Protein 6.5 L Albumin 3.3 Globulin 3.2 Albumin/Globulin Ratio 1.0 Lipase 28 Urine Color Urine Clarity Urine pH Ur Specific [place] Urine Protein Urine Glucose (UA) Urine Ketones Urine Occult Blood Urine Nitrite Urine Bilirubin Urine Urobilinogen Ur Leukocyte Esterase Ur Microscopic Review Urine Culture Comments 09/25/18 09/25/18 09:39 09:55 WBC RBC Hgb Hct MCV MCH MCHC RDW Plt Count MPV Neut # (Auto) Lymph # (Auto) [place] # (Auto) Eos # (Auto) Baso # (Auto) Absolute Nucleated RBC Nucleated RBC % PT INR Sodium Potassium Chloride Carbon Dioxide Anion Gap BUN Creatinine Estimated GFR (MDRD) Glucose Calcium Total Bilirubin AST ALT Alkaline Phosphatase Troponin I < 0.04 Total Protein Albumin Globulin Albumin/Globulin Ratio Lipase Urine Color YELLOW Urine Clarity CLEAR Urine pH 7.0 Ur Specific [place] 1.010 Urine Protein NEGATIVE Urine Glucose (UA) NEGATIVE Urine Ketones NEGATIVE Urine Occult Blood NEGATIVE Urine Nitrite NEGATIVE Urine Bilirubin NEGATIVE Urine Urobilinogen 0.2 (NORMAL) Ur Leukocyte Esterase NEGATIVE Ur Microscopic Review NOT INDICATED Urine Culture Comments NOT INDICATED - Rads (name of study) CT head without Radiology: Prelim report reviewed (Impression: Hyperdense opacification of left maxillary sinus. This can be seen with hemorrhage as well as fungal sinusitis. No acute intracranial hemorrhage is detected.), EMP read indepedently, See rad report PD MEDICAL DECISION MAKING - ED course Complexity details: reviewed old records, reviewed results, re-evaluated patient, considered differential, d/w patient, d/w family ED course: 83-year-old male with a recent diagnosis of pancreatic cancer is awaiting a biopsy of his liver for staging and he has discontinued his Coumadin as of last night. He has a headache today that is now resolved and he had some transient left-sided numbness. I suspect that his symptoms may be related to excessive stress and the patient readily acknowledges this. He has biopsy scheduled for next week and I have indicated the patient the nature of the findings of his CT scan showing what appears to be pancreatic cancer with metastases to the liver and the poor prognosis of this. I have asked the patient to visit with his family. He will have follow-up with interventional radiology next week for biopsy. He does not otherwise feel ill today. He is asking about medication for nausea. Today he was not dehydrated on interrogation of the inferior vena cava. There is an incidental finding on the CT scan regarding the left maxillary sinus.The patient has no sinus symptoms and no sinus point tenderness. He will follow-up with his primary and no specific treatment is indicated today. Departure - Departure Disposition: 01 Home, Self Care Clinical Impression: Stress reaction Condition: Stable Instructions: ED Stress React Follow-Up: Karine Marks MD [Primary Care Provider] - Prescriptions: Ondansetron Odt [Zofran] 4 mg TL Q6H PRN #10 tablet PRN Reason: Nausea / Vomiting Comments: Follow up with interventional radiology as planned next week.
[2018-09-25 09:27] LABS: BASOPHILS % (AUTO) 0.8 %; EOSINOPHILS # (AUTO) 0.4 10^3/uL (0.0-0.7); EOSINOPHILS % (AUTO) 9.9 %; HGB - HEMOGLOBIN 9.1 g/dL (14.0-18.0); LYMPHOCYTES # (AUTO) 0.5 10^3/uL (1.5-3.5); LYMPHOCYTES % (AUTO) 15.4 %; MEAN CORPUSCULAR HEMOGLOBIN 29.4 pg (27.0-31.0); MEAN PLATELET VOLUME 9.2 fL (7.4-11.4); MONOCYTES # (AUTO) 0.7 10^3/uL (0.0-1.0); MONOCYTES % (AUTO) 19.9 %; NEUTROPHILS # (AUTO) 1.9 10^3/uL (1.5-6.6); PLT - PLATELET COUNT 222 10^3/uL (130-450); RED BLOOD COUNT 3.09 10^6/uL (4.70-6.10); RED CELL DISTRIBUTION WIDTH 15.5 % (12.0-15.0); WHITE BLOOD COUNT 3.6 x10^3/uL (4.8-10.8)
[2018-09-25] MEDS ORDERED: diltiaZEM INJ 5 MG/ML VIAL IVP STA (09:36)
[2018-09-25 09:41] LABS: ALBUMIN 3.3 g/dL (3.2-5.5); BILIRUBIN,TOTAL 1.4 mg/dL (0.2-1.0); TOTAL PROTEIN 6.5 g/dL (6.7-8.2)
[2018-09-25 09:59] LABS: INR 2.3 (0.8-1.2); PT - PROTHROMBIN TIME 25.6 secs (9.9-12.6)
[2018-09-25 10:05] LABS: BILIRUBIN,URINE NEGATIVE (NEGATIVE); GLUCOSE, URINE (UA) NEGATIVE (NEGATIVE); KETONES,URINE (UA) NEGATIVE (NEGATIVE); LEUKOCYTE ESTERASE, URINE NEGATIVE (NEGATIVE); NITRITE,URINE NEGATIVE (NEGATIVE); OCCULT BLOOD,URINE NEGATIVE (NEGATIVE); PROTEIN,URINE NEGATIVE (NEGATIVE); UROBILINOGEN,URINE 0.2 (NORMAL) E.U./dL (NORMAL)
[2018-09-25 10:07] LABS: CLARITY,URINE CLEAR (CLEAR)
--- NOTE | 2018-09-25 10:27 | CT Report ---
Reason: right sided headache L weakness coumadin Procedure Date: 09/25/2018 Accession Number: [id number] / [id number] Procedure: CT - HEAD WO CPT Code: FULL RESULT: EXAM: CT HEAD EXAM DATE: 09/25/2018 10:10 AM. CLINICAL HISTORY: Right-sided headache. Left weakness. Coumadin. COMPARISON: CT HEAD W/O CONT 09/10/2012 9:00 AM. TECHNIQUE: Multiaxial CT images were obtained from the foramen magnum to the vertex. Reformats: Sagittal and coronal. IV contrast: None. In accordance with CT protocol optimization, one or more of the following dose reduction techniques were utilized for this exam: automated exposure control, adjustment of mA and/or KV based on patient size, or use of iterative reconstructive technique. FINDINGS: Parenchyma: No intraparenchymal hemorrhage. No evidence of mass or midline shift. Su-white differentiation is distinct. Extraaxial Spaces: Normal for age. No subdural or epidural collections identified. Ventricles: Normal in size and position. Sinuses and Orbits: Hyperdense opacification of the left maxillary sinus and mucoperiosteal thickening of the right maxillary sinus with partial opacification of left-sided ethmoid air cells, sinusitis. No mastoid effusion. Orbits appear preserved. Bones: No evidence of fracture or calvarial defect. Other: None. IMPRESSION: Hyperdense opacification of the left maxillary sinus. This can be seen with hemorrhage as well as fungal sinusitis. No acute intracranial hemorrhage is detected. RADIA
[2018-09-25 12:08] VITALS: BP 136/90
== END 2018-09-25 12:20 | disposition home or self-care (01) ==
LOC: EDSEX → ED 09:04
DX: F43.8 Other reactions to severe stress (principal); R51 Headache; R11.0 Nausea; R20.0 Anesthesia of skin; J34.89 Other specified disorders of nose and nasal sinuses; C25.9 Malignant neoplasm of pancreas, unspecified; C78.7 Secondary malignant neoplasm of liver and intrahepatic bile duct; I10 Essential (primary) hypertension; I45.10 Unspecified right bundle-branch block; I48.91 Unspecified atrial fibrillation; Z79.01 Long term (current) use of anticoagulants; Z79.82 Long term (current) use of aspirin
CPT/HCPCS: 36415; 70450; 80053; 81001; 81003; 83690; 84484; 85025; 85610; 87086; 93005; 96374; 99284

== ENCOUNTER 2018-09-29 22:24 | Outpatient (CLI) | payer MEDICARE, OTHER | END 2018-09-29 22:25 | disposition critical access hospital (66) | LOC: EMS 22:24 | PROVIDERS: ATTEND Surgery | DX: R55 Syncope and collapse (principal); R53.1 Weakness; R51 Headache | CPT/HCPCS: A0425; A0427 ==

== ENCOUNTER 2018-09-29 22:36 | Emergency (ER) | payer MEDICARE, OTHER ==
[2018-09-29 23:14] LABS: BASOPHILS % (AUTO) 0.8 %; EOSINOPHILS # (AUTO) 0.4 10^3/uL (0.0-0.7); HGB - HEMOGLOBIN 8.3 g/dL (14.0-18.0); LYMPHOCYTES # (AUTO) 0.6 10^3/uL (1.5-3.5); LYMPHOCYTES % (AUTO) 18.2 %; MEAN CORPUSCULAR HEMOGLOBIN 29.3 pg (27.0-31.0); MEAN CORPUSCULAR HGB CONC 33.2 g/dL (32.0-36.0); MEAN CORPUSCULAR VOLUME 88.3 fL (80.0-94.0); MEAN PLATELET VOLUME 8.6 fL (7.4-11.4); MONOCYTES # (AUTO) 0.6 10^3/uL (0.0-1.0); MONOCYTES % (AUTO) 19.5 %; NEUTROPHILS # (AUTO) 1.6 10^3/uL (1.5-6.6); NEUTROPHILS % (AUTO) 50.5 %; PLT - PLATELET COUNT 184 10^3/uL (130-450); RED BLOOD COUNT 2.83 10^6/uL (4.70-6.10); RED CELL DISTRIBUTION WIDTH 15.6 % (12.0-15.0); WHITE BLOOD COUNT 3.2 x10^3/uL (4.8-10.8)
[2018-09-29 23:23] LABS: BILIRUBIN,TOTAL 1.1 mg/dL (0.2-1.0); CALCIUM 8.2 mg/dL (8.5-10.3); CREATININE 1.3 mg/dL (0.6-1.2)
[2018-09-29 23:25] LABS: INR 2.2 (0.8-1.2); PT - PROTHROMBIN TIME 24.4 secs (9.9-12.6)
--- NOTE | 2018-09-30 00:34 | ED Physician Documentation ---
PD HPI SYNCOPE - Stated complaint Stated Complaint: NEAR SYNCOPE - Chief complaint Chief Complaint: Neuro - History obtained from History obtained from: Patient, Family - History of Present Illness Witnessed: Witnessed Duration: Seconds Preceding symptoms: Light headed, Generalized weakness. No: Headache, Vision changes, Chest pain, Palpitations, Diaphoresis, Dyspnea, Abdominal pain, Nausea / vomiting Associated symptoms: Diaphoresis, Other (denies blood in urine or stool or black tarry stool). No: Seizure, Incontinant of urine, Incontinant of stool, Headache, Vision changes, Chest pain, Palpitations, Dyspnea, Nausea / vomiting, Abdominal pain Contributing factors: Exertion. No: Recent med change, Decreased PO intake, Noxious stimulae, Emotional upset, Just stood up Injury occurred: None Treatment ANIMAL ECOLOGIST: Other (none) Similar symptoms before: Other (has had similar symptoms in the last week or so) Recently seen: Clinic (patient is being evaluated for liver masses and is scheduled to have a biopsy tomorrow.) - Treatment prior to arrival Treatment prior to arrival: none Review of Systems Ten Systems: 10 systems reviewed and negative Constitutional: reports: Fatigue. denies: Fever, Chills Cardiac: denies: Chest pain / pressure Respiratory: denies: Dyspnea GI: denies: Abdominal Pain, Abdominal Swelling, Nausea, Vomiting Skin: reports: Other (pale skin). denies: Rash Musculoskeletal: denies: Neck pain, Back pain Neurologic: reports: Generalized weakness PD PAST MEDICAL HISTORY - Past Medical History Past Medical History: Yes Cardiovascular: Hypertension, Atrial fibrillation - Past Surgical History Past Surgical History: No - Present Medications Home Medications: Ambulatory Orders Medication Instructions Recorded Confirmed RX: Allopurinol 400 mg PO DAILY 05/25/17 09/25/18 RX: Aspirin 81 mg PO DAILY 05/25/17 09/25/18 RX: Carvedilol 25 mg PO BID 05/25/17 09/25/18 Terazosin [Hytrin] 5 mg PO DAILY 05/25/17 09/25/18 Warfarin [Coumadin] 5 mg PO 1400 05/25/17 09/25/18 Warfarin [Coumadin] 7.5 mg PO 1400 05/25/17 09/25/18 RX: HYDROcod/ACETAM 5/325 [[place] 1 - 2 ea PO Q6H PRN #15 tablet 09/24/17 09/25/18 5/325] Ondansetron Odt [Zofran] 4 mg TL Q6H PRN #10 tablet 09/25/18 RX: Cilostazol 1 tab PO BID 09/25/18 09/25/18 RX: Losartan Potassium 1 tab PO DAILY 09/25/18 09/25/18 - Allergies Allergies/Adverse Reactions: Allergies Allergy/AdvReac Type Severity Reaction Status Date / Time niacin Allergy Unknown Verified 09/29/18 22:45 Penicillins Allergy Unknown Verified 09/29/18 22:45 - Social History Does the pt smoke?: No Smoking Status: Never smoker Does the pt drink ETOH?: No Does the pt have substance abuse?: No - Immunizations Immunizations are current?: Yes - POLST Patient has POLST: No PD ED PE EXPANDED - General General: Alert, No acute distress, Well developed/nourished, Other (pale) - HEENT HEENT: Atraumatic, PERRL - Eyes Eyes: PERRL - Neck Neck: Supple w/out meningeal sx. No: Stiff neck - Cardiac Cardiac: Regular Rate, Regular Rhythm - Respiratory Respiratory: Clear to ausultation patrice. No: Distress, Labored - Abdomen Abdomen: No: Rebound, Guarding - Rectal Rectal: Heme Occult Neg - QC+ - Derm Derm: Normal color, Warm and dry, Pale - Extremities Extremities: Normal - Neuro Neuro: Alert and Oriented X 3, Confused - GCS Eye Opening: Spontaneous Motor: Obeys Commands Verbal: Oriented Total: 15 Results - Vitals Vitals: Oxygen O2 Source Room air - EKG (time done) No standard instances Rhythm: NSR [place]: Normal QRS: Normal Computer interpretation: Agree with computer - Labs Labs: Laboratory Tests 09/29/18 09/29/18 09/29/18 23:05 23:05 23:05 WBC 3.2 L RBC 2.83 L Hgb 8.3 L Hct 25.0 L MCV 88.3 MCH 29.3 MCHC 33.2 RDW 15.6 H Plt Count 184 MPV 8.6 Neut # (Auto) 1.6 Lymph # (Auto) 0.6 L [place] # (Auto) 0.6 Eos # (Auto) 0.4 Baso # (Auto) 0.0 Absolute Nucleated RBC 0.00 Nucleated RBC % 0.0 PT 24.4 H INR 2.2 H Sodium 134 L Potassium 3.8 Chloride 96 L Carbon Dioxide 28 Anion Gap 10.0 BUN 24 H Creatinine 1.3 H Estimated GFR (MDRD) 53 L Glucose 130 H Calcium 8.2 L Total Bilirubin 1.1 H AST 27 ALT 27 Alkaline Phosphatase 168 H Troponin I Total Protein 6.0 L Albumin 3.0 L Globulin 3.0 Albumin/Globulin Ratio 1.0 Lipase 23 / 23:05 WBC RBC Hgb Hct MCV MCH MCHC RDW Plt Count MPV Neut # (Auto) Lymph # (Auto) [place] # (Auto) Eos # (Auto) Baso # (Auto) Absolute Nucleated RBC Nucleated RBC % PT INR Sodium Potassium Chloride Carbon Dioxide Anion Gap BUN Creatinine Estimated GFR (MDRD) Glucose Calcium Total Bilirubin AST ALT Alkaline Phosphatase Troponin I < 0.04 Total Protein Albumin Globulin Albumin/Globulin Ratio Lipase PD MEDICAL DECISION MAKING - ED course Complexity details: reviewed old records, reviewed results, re-evaluated patient, considered differential, d/w patient, d/w family ED course: 83 y/o M with near-syncope, feeling lightheaded after walking around today, almost passed out. Has had similar episodes in the last week or two per family. Pt is being evaluated for abdominal/liver masses with a biopsy tomorrow. Denies prior hx of anemia and has Hgb here of 8.4, appears pale. Guaiac negative stool. Cardiac eval here is neg. Pt is not sob or having CP to suggest PE. Suspect his anemia is contributing to these symptoms. Discussed with pt and family the possiblity of a blood transfusion at this time but they declined and I think this is reasonable since patient has good followup and is not having active bleeding on my evaluation. I provided the patient with his results here. Patient will call PCP in the morning to discuss results, find out old records to see his baseline blood counts since I don't have them here and follow up for possible blood transfusion. Departure - Departure Disposition: 01 Home, Self Care Clinical Impression: Anemia, Vasovagal near-syncope Condition: Fair Instructions: ED Fainting Unkn Cause Follow-Up: Karine Marks MD [Primary Care Provider] - Tomorrow (to discuss your results in the ED and the possibility of significant anemia causing your symptoms of weakness and passing out. You may need a blood transfusion.) Comments: You were evaluated in the ED today for a near-syncopal episode. Your EKG showed atrial fibrillation which is rate controlled and chronic for you. This likely does not explain your symptoms. Your creatinine was 1.3 which may suggest some dehydration though I didn't have any old labs here for comparison. Your hemaglobin and hematocrit however were quite low, called anemia. This could cause you to feel weak and lightheaded on exertion. You should call your doctor in the morning to discuss whether this has been present on old bloodwork and plan for a blood transfusion. You may also want to discuss whether or not to undergo the scheduled biopsies as these can lead to further blood loss. Discharge Date/Time: 09/30/18 01:08
[2018-09-30 01:08] VITALS: BP 129/74
== END 2018-09-30 01:08 | disposition home or self-care (01) ==
LOC: EDUNIT# → ED 22:36
DX: D64.9 Anemia, unspecified (principal); R55 Syncope and collapse; I48.91 Unspecified atrial fibrillation; I45.10 Unspecified right bundle-branch block; I10 Essential (primary) hypertension; Z79.01 Long term (current) use of anticoagulants; Z79.82 Long term (current) use of aspirin
CPT/HCPCS: 36415; 80053; 83690; 84484; 85025; 85610; 93005; 99284

== ENCOUNTER 2018-10-01 15:07 | Outpatient (CLI) | payer MEDICARE, OTHER | END 2018-10-01 23:59 | disposition home or self-care (01) | LOC: LAB 15:07 | PROVIDERS: ATTEND Family Medicine | DX: Z79.01 Long term (current) use of anticoagulants (principal); Z51.81 Encounter for therapeutic drug level monitoring | CPT/HCPCS: 85610 ==

== ENCOUNTER 2018-10-06 11:38 | Outpatient (CLI) | payer MEDICARE, OTHER ==
--- NOTE | 2018-10-06 13:48 | XRAY Report ---
Reason: CONSTIPATION Procedure Date: 10/06/2018 Accession Number: [id number] / [id number] Procedure: WCP - Abdomen 1 View X-Ray CPT Code: 69010 FULL RESULT: EXAM: ABDOMEN RADIOGRAPHY EXAM DATE: 10/06/2018 11:50 AM. CLINICAL HISTORY: Constipation. COMPARISON: None. TECHNIQUE: 1 view. FINDINGS: Bowel Gas Pattern: Within normal limits. No dilated loops. Stool within the rectal vault demonstrates a caliber of at least 6.6 cm. Other: Vascular calcifications are identified. IMPRESSION: Nonobstructive bowel gas pattern with stool burden as described. [facility]
== END 2018-10-06 11:39 | disposition home or self-care (01) ==
LOC: DI.WCP 11:38
PROVIDERS: ATTEND Family Medicine
DX: K59.00 Constipation, unspecified (principal); D64.9 Anemia, unspecified; R55 Syncope and collapse
CPT/HCPCS: 36415; 74018; 82607; 82728; 82746; 83540; 84466; 85025; 86850; 86900; 86901

== ENCOUNTER 2018-10-06 12:13 | Outpatient (CLI) | payer MEDICARE, OTHER ==
[2018-10-06 19:04] LABS: BASOPHILS % (AUTO) 0.6 %; EOSINOPHILS # (AUTO) 0.4 10^3/uL (0.0-0.7); HGB - HEMOGLOBIN 8.1 g/dL (14.0-18.0); LYMPHOCYTES # (AUTO) 0.6 10^3/uL (1.5-3.5); LYMPHOCYTES % (AUTO) 15.5 %; MEAN CORPUSCULAR HEMOGLOBIN 28.3 pg (27.0-31.0); MEAN CORPUSCULAR HGB CONC 32.1 g/dL (32.0-36.0); MEAN CORPUSCULAR VOLUME 88.1 fL (80.0-94.0); MEAN PLATELET VOLUME 9.6 fL (7.4-11.4); MONOCYTES # (AUTO) 0.8 10^3/uL (0.0-1.0); MONOCYTES % (AUTO) 22.3 %; NEUTROPHILS # (AUTO) 1.9 10^3/uL (1.5-6.6); NEUTROPHILS % (AUTO) 51.6 %; PLT - PLATELET COUNT 254 10^3/uL (130-450); RED BLOOD COUNT 2.85 10^6/uL (4.70-6.10); RED CELL DISTRIBUTION WIDTH 16.2 % (12.0-15.0); WHITE BLOOD COUNT 3.6 x10^3/uL (4.8-10.8)
[2018-10-06 19:25] LABS: % IRON SATURATION 9 % (20-50); IRON 14 ug/dL (45-182); TOTAL IRON BINDING CAPACITY 155 ug/dL (250-450); TRANSFERRIN 111 mg/dL (180-329)
[2018-10-06 19:35] LABS: FERRITIN 631.9 ng/mL (23.9-336.2)
== END 2018-10-06 12:14 | disposition home or self-care (01) ==
LOC: LAB.WCP 12:13
PROVIDERS: ATTEND Family Medicine
DX: D64.9 Anemia, unspecified (principal); R55 Syncope and collapse
CPT/HCPCS: 36415; 82607; 82728; 82746; 83540; 84466; 85025; 86850; 86900; 86901

== ENCOUNTER 2018-10-09 12:14 | Outpatient (CLI) | payer MEDICARE, OTHER | END 2018-10-09 12:15 | disposition home or self-care (01) | LOC: LAB 12:14 | PROVIDERS: ATTEND Family Medicine | DX: Z79.01 Long term (current) use of anticoagulants (principal) | CPT/HCPCS: 85610 ==

== ENCOUNTER 2018-10-14 12:52 | Outpatient (CLI) | payer MEDICARE, OTHER ==
[2018-10-14 18:57] LABS: BASOPHILS % (AUTO) 0.6 %; EOSINOPHILS % (AUTO) 12.9 %; HGB - HEMOGLOBIN 9.8 g/dL (14.0-18.0); MEAN CORPUSCULAR HEMOGLOBIN 28.3 pg (27.0-31.0); MEAN CORPUSCULAR HGB CONC 32.5 g/dL (32.0-36.0); MEAN PLATELET VOLUME 9.3 fL (7.4-11.4); MONOCYTES % (AUTO) 25.3 %; NEUTROPHILS % (AUTO) 41.2 %; PLT - PLATELET COUNT 238 10^3/uL (130-450); RED BLOOD COUNT 3.47 10^6/uL (4.70-6.10); WHITE BLOOD COUNT 3.6 x10^3/uL (4.8-10.8)
[2018-10-14 19:04] LABS: ABNORMAL LYMPHS % (MANUAL) 0 %
[2018-10-14 19:12] LABS: ALBUMIN 2.9 g/dL (3.2-5.5); ALBUMIN/GLOBULIN RATIO 0.9 (1.0-2.2); CALCIUM 8.4 mg/dL (8.5-10.3); CREATININE 1.2 mg/dL (0.6-1.2)
[2018-10-14 19:26] LABS: BAND NEUTROPHILS % (MANUAL) 5 %; BASOPHILS % (MANUAL) 1 %; DIFFERENTIAL COMMENT MANUAL DIFFERENTIAL; EOSINOPHILS # (MANUAL) 0.5 10^3/uL (0-0.7); LYMPHOCYTES # (MANUAL) 1.1 10^3/uL (1.5-3.5); LYMPHOCYTES % (MANUAL) 30 %; MONOCYTES # (MANUAL) 0.5 10^3/uL (0.0-1.0); NEUTROPHILS # (MANUAL) 1.5 10^3/uL (1.5-6.6); NEUTROPHILS % (MANUAL) 36 %; PLATELET ESTIMATE, MANUAL NORMAL (130-450,000) (NORMAL); PLATELET MORPHOLOGY NORMAL APPEARANCE (NORMAL); RBC MORPHOLOGY (MULTIPLE) 1+ ANISOCYTOSIS (NORMAL)
== END 2018-10-14 12:53 | disposition home or self-care (01) ==
LOC: LAB.WCP 12:52
PROVIDERS: ATTEND Family Medicine
DX: R10.13 Epigastric pain (principal); D64.9 Anemia, unspecified
CPT/HCPCS: 36415; 80053; 82150; 83690; 85025

== ENCOUNTER 2018-10-15 08:00 | Outpatient (CLI) | payer MEDICARE, OTHER ==
[2018-10-15 15:22] LABS: H. PYLORIS ANTIGEN STL NEGATIVE (Negative)
== END 2018-10-15 23:59 | disposition home or self-care (01) ==
LOC: LAB.R 08:00
PROVIDERS: ATTEND Family Medicine
DX: D64.9 Anemia, unspecified (principal); R10.13 Epigastric pain
CPT/HCPCS: 87338

== ENCOUNTER 2018-10-15 14:47 | Outpatient (CLI) | payer MEDICARE, OTHER ==
--- NOTE | 2018-10-15 18:38 | CONSULTATION NOTE ---
Palliative Care Consultation - Referral Referring Provider: Dr. Noa Cantrell Time of Visit: [id number] Referral setting: [facility] [place] Referral Reason: Pancreatic Ca with Liver mets/Goals of Care - Information Sources Records reviewed: Previous records reviewed History/Review of Systems obtained from: Patient, Family ( Evangelina at visit) Exam limitations: No limitations - History of Present Illness Brief History of Present Illness: This is an 83-year-old gentleman who was having increasedLeft flank plain, did have a CT of the abdomen and pelvis, was found to have hypodense liver lesions as well as a mass in the pancreatic tail of 6.1 x 5.2 cm. He also presented with a pericardial effusion, recently experienced lack of appetite, ongoing nausea, and weight loss. He was seen on 10/03/2018 at [place] urgently, was given the option of chemotherapy, he had had a CT-guided biopsy of the right hepatic lobe on 09/30. He was told he had stage IV pancreatic cancer, not curable, without treatment survival is usually 3 to 6 months, had offered chemotherapy but expected not to prolong survival. It originally explained he was interested in systemic chemotherapy, and agreed to port placement and chemotherapy, but after thinking about it further, he declined. At this point in time he wants to just focus on quality of life, spending time with his family, and is here to talk about goals of care today. Patient has had some intermittent abdominal pain, tolerated hydrocodone poorly with hallucinations, tolerated tramadol at higher doses poorly with hallucinations, he has been on a prior for his osteoarthritis pain. Today presents with his pain well controlled actually on Acetaminophen, has intermittent headache pain, His complaint is fatigue, poor activity tolerance and weakness. Patient is used to being quite active and is finding this to be quite poor quality of life. His right foot reports he is just eating bites and hardly anything at all, he does feel like he is drinking adequate fluids, but that today was improved. He had been recently started on mirtazapine, and his pro times have been somewhat erratic though this would be to be expected with his liver mets, and his overall goal is not to experience significant suffering particularly at end of life. Patient received palliative care referral as well as hospice, had declined hospice referral when called, she still feels somewhat distressed that it is "too early", the patient is quite engaged in wanting support to meet his goals. Medical/Surgical History - Past Medical History Cardiovascular: reports: Hypertension, Atrial fibrillation (on coumadin therapy), Other (pericardial effusion; left ventricular hypertrophy mitral valve hypertrophy) Respiratory: reports: COPD, Shortness of breath Neuro: TIA, Headaches, Other (bells palsy) Endocrine/Autoimmune: reports: HyPOthyroidism GI: reports: Hiatal hernia Psych: reports: Depression, Anxiety Musculoskeletal: reports: Osteoarthritis (severe multiple joints), Gout, Fatigue MRSA Hx?: No - Past Surgical History General: reports: Hiatal hernia repair - Substance History Use: Uses substance without health or social issues: Tobacco (history of smoling; ETOH very little) Social History - Living Situation Living arrangement: At home Living Situation: With spouse/s.o. Support System: Patient has 3 sons, and 1 daughter. They reports that they are very close family. Patient has worked in the [employer], for 25 years. He also works for the [employer] and is [employer]. 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 Family History - Family History Family History: Mother: , Father: , Sister: , Cancer (colon cancer; a couple of years ago) Medications/Allergies - Medications Home Medications: Ambulatory Orders Medication Instructions Recorded Confirmed Allopurinol 400 mg PO DAILY 05/25/17 10/16/18 Aspirin 81 mg PO DAILY 05/25/17 10/16/18 Carvedilol 25 mg PO BID 05/25/17 10/16/18 Terazosin [Hytrin] 5 mg PO DAILY 05/25/17 10/16/18 Warfarin [Coumadin] 2.5 mg PO 1400 05/25/17 10/16/18 Warfarin [Coumadin] 5 mg PO DAILY 05/25/17 10/16/18 Cilostazol 1 tab PO BID 09/25/18 10/16/18 Losartan Potassium 1 tab PO DAILY 09/25/18 10/16/18 Ondansetron Odt [Zofran] 4 mg TL Q6H PRN #10 tablet 09/25/18 10/09/18 ALPRAZolam [Alprazolam] 0.25 mg PO Q6H PRN 10/09/18 10/16/18 Furosemide [Lasix] 20 mg PO DAILY 10/09/18 10/16/18 traMADol [Ultram] 100 mg PO Q6H PRN 10/09/18 10/16/18 Mirtazapine 7.5 mg PO ACHS 10/16/18 10/16/18 - Allergies Allergies/Adverse Reactions: Allergies Allergy/AdvReac Type Severity Reaction Status Date / Time niacin Allergy Unknown Verified 09/29/18 22:45 Penicillins Allergy Unknown Verified 09/29/18 22:45 Review of Systems - Constitutional Constitutional: reports: Fatigue, Poor appetite, Weight loss (a) - Ears, Nose & Throat Ears, Nose & Throat: reports: Hearing loss, Hearing aids, Dry mouth - Cardiovascular Cardiovascular: reports: Irregular heart rate (10-15 pounds), Exertional dyspnea, Decr. exercise tolerance - Respiratory Respiratory: reports: SOB with exertion - Gastrointestinal Gastrointestinal: reports: Abdominal pain (midabdominal pain across upper area into ribs), Nausea, Bloating, Poor appetite, Early satiety. denies: Constipation, Vomiting - Genitourinary Genitourinary: reports: Urgency - Musculoskeletal Musculoskeletal: reports: Back pain, Muscle aches, Stiffness, Muscle weakness, Joint pain - Integumentary Integumentary: reports: Dryness - Neurological Neurological: reports: General weakness, Headache (fluctuates) - Psychiatric Psychiatric: reports: Depression, Anxiety - Hematologic/Lymphatic Hematologic/Lymphatic: reports: Anemia - Other Findings Other Findings: hgb 9.8 Received transfusion at time of liver biopsy Physical Exam - Vital Signs Pulse Rate: 87 Respiratory Rate: 18 Blood Pressure: 113/74 - Physical Exam General Appearance: positive: Mild distress, Anxious Eyes Bilateral: positive: Normal inspection ENT: positive: No signs of dehydration. negative: Pharyngeal erythema Neck: positive: No JVD, Trachea midline Cardiovascular: positive: Irregularly irregular Respiratory: positive: Diminished in bases, Other (respiratory effort with any activity) Abdomen: positive: Soft, Nml bowel sounds, Tenderness, Distended, Taut, Obese Skin: positive: Dryness, Other (birthmark on hands/forearms looks like petchaie/bruisting) Extremities: positive: Pedal edema (1+ right greater than left up to mid calf; usually wears support hose) Neurologic/Psychiatric: positive: Oriented x3, Weakness, Depressed mood/affect, Flat affect, Other (tearful through visit) Palliative Care - POLST Patient has POLST: Yes POLST Status: DNR, Comfort Measures (Completed at time of visit) Pain: Pain improved, Location (abdominal rates 8/10 at worst. no precipitating facitors;) Tiredness/Fatigue: Severe (7-10) Drowsiness/Sedation: Severe (7-10) Nausea: None Depression: Severe (7-10) Anxiety: Severe (7-10) Dyspnea: Severe (7-10) Anorexia: Severe (7-10), Weight loss Sleep: Sleeps well Constipation: No Feelings of wellbeing/Perceived Quality of Life: Poor, Worsening Performance Status: Patient's functional status declining fairly rapidly. Patient only able to ambu late short distances without needing to rest. Complains of significant fatigue and sleeping most the time. Patient at PPS of 50%. - Palliative Care Discussion: Patient and feeling quite overwhelmed given the severity of the illness and have changed. Patient's concerns that he does not suffer, he did have his sister who in the last couple years actually in the hospital of colon cancer. Shares his family is very close. When trying to draw send her into the conversation, she is quite distressed is unable to talk about it. She reports this is "too early" for hospice. We did though code and explore his goals, which is the focus on comfort he wants to spend time with family, he does not want to be in the hospital to . He would like to be at home. He does have high symptom burden, and is getting more difficult to get out he has been having to go to the doctors frequently for his Coumadin adjustment. At this point in time he wants to continue his meds related to this as he has had concerns for TIAs. Counseling provided at length regarding the role of the hospice team, that given his diagnosis things could change quickly or he could continue for a while, this way he would have a layer support. Given patient needs and his goals patient is quite open to starting hospice. We discussed the difference between palliative care and hospice, and given his current ongoing decline hospice was agreed upon. He very much does not want to have suffering. At this point in time he feels the Tylenol is managing his pain, he has been a little bit more hungry with the initiation of mirtazapine and so feeling hopeful he will feel better than he has. We discussed the role of hospice and fine-tuning and monitoring his symptoms to maximize his quality of life Results - Lab Results Lab results reviewed: Yes Impression and Recommendations - Palliative Care Impression: This is an 83-year-old gentleman who has a very recent diagnosis of pancreatic cancer involving the liver. He has high symptom burden, has had quick functional decline, and is feeling somewhat overwhelmed by both his diagnoses and facing his imminent decline. Patient is decided not to pursue treatment, would like to focus on comfort. Given his goals and diagnosis, recommendation to transition to hospice. Recommendations/Counseling Done: 1. Anorexia. Patient reports taste changes, early satiety, denies nausea. Has just been initiated on mirtazapine, does feel little bit better as far as wanting to eat today. Patient has been using Ensure, small frequent feedings. Patient would benefit for further nutritional counseling, and monitoring. 2. Pain of neoplastic origin. Patient has been trialed on hydrocodone and tramadol, with increased hallucinations. Patient would benefit from initiation of methadone a small dose 2.5 mg daily as acetaminophen currently managing pain. Titrate quite slow with patient's liver involvement and concerns for side effects. Agreed would wait until hospice initiated, to implement plan. Patient and quite overwhelmed, concerned about needing oversight and monitoring. 3. Advanced care planning. Patient very practical and pragmatic, though quite tearful about leaving his family behind. Counseling provided regarding hospice, patient quite open and feels it would be a good fit. remains quiet, but did agree. We did complete the POLST, with do not attempt resuscitation and comfort focused treatment, no medically assisted nutrition as well as determine the use of antibiotics with comfort is the goal. Call to Dr. Marks who had made the original referral, regarding decision to move patient onto hospice in agreement. Reviewed hospice nurses can do the protimes, as patient is scheduled again tomorrow. Patient actually quite well coming to not be making more trips out of the home. Contact with hospice [facility], for transition. Time Spent: 70 minutes was given 50% of this done in counseling regarding goals of care, anticipatory guidance, transition to hospice. Palliative care with no further plans for follow-up, hospice to admit in the next few days
== END 2018-10-15 14:48 | disposition home or self-care (01) ==
LOC: PC 14:47
PROVIDERS: ATTEND Nurse Practitioner Adult Health
DX: Z51.5 Encounter for palliative care (principal); C25.2 Malignant neoplasm of tail of pancreas; C78.7 Secondary malignant neoplasm of liver and intrahepatic bile duct; I48.91 Unspecified atrial fibrillation; I10 Essential (primary) hypertension; J44.9 Chronic obstructive pulmonary disease, unspecified; R51 Headache; E03.9 Hypothyroidism, unspecified; F32.9 Major depressive disorder, single episode, unspecified; F41.9 Anxiety disorder, unspecified; M19.90 Unspecified osteoarthritis, unspecified site; M10.9 Gout, unspecified; R53.83 Other fatigue; R39.15 Urgency of urination; H91.90 Unspecified hearing loss, unspecified ear; G89.3 Neoplasm related pain (acute) (chronic); R10.9 Unspecified abdominal pain; R11.0 Nausea; M54.9 Dorsalgia, unspecified; D64.9 Anemia, unspecified; Z66 Do not resuscitate; F50.89 Other specified eating disorder; Z86.73 Personal history of transient ischemic attack (TIA), and cerebral infarction without residual deficits; Z87.891 Personal history of nicotine dependence; Z79.82 Long term (current) use of aspirin; Z79.01 Long term (current) use of anticoagulants
CPT/HCPCS: 99205

== ENCOUNTER 2018-10-27 20:37 | Outpatient (CLI) | payer MEDICARE, OTHER | END 2018-10-27 20:38 | disposition EMS.NT | LOC: EMS 20:37 | PROVIDERS: ATTEND Surgery | DX: S09.90XA Unspecified injury of head, initial encounter (principal); W19.XXXA Unspecified fall, initial encounter; Y92.003 Bedroom of unspecified non-institutional (private) residence as the place of occurrence of the external cause ==